=== PATIENT | female | born 1975 | race African-American/Black ===

== ENCOUNTER 2020-07-28 07:08 | Emergency (ER) | payer OTHER ==
[~2020-07-28] VITALS: Ht 154.9 cm; Wt 67.6 kg
[2020-07-28] MEDS ORDERED: FLEXERIL PO (07:34)
[2020-07-28] MEDS ORDERED: PREDNISONE 20 M20 M1 PO (07:34)
[2020-07-28] MEDS ORDERED: HYDROCODON-ACE1 EAC7 PO (07:34)
[2020-07-28 08:02] VITALS: BP 115/70
== END 2020-07-28 08:03 | disposition home or self-care (01) ==
LOC: M.ERS 07:08
DX: M54.31 Sciatica, right side (principal)